=== PATIENT | female | born 1960 | race Caucasian/White ===

== ENCOUNTER 2025-07-29 07:27 | Day surgery (SDC) | payer MEDICARE, BC, SELFPAY ==
--- NOTE | 2025-07-23 13:14 | EXP.HP ---
History of Present Illness *History of present illness: Mrs. Roasdo is a 64-year-old female who is here for diagnostic EGD. The patient was having heartburn and pyrosis daily and had an EGD with me in March 2020. At that time she had nonerosive GERD with moderate esophageal dysmotility and 3 cm hiatal hernia. 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 I had recommended omeprazole daily. The patient also had a colonoscopy at that time that was entirely normal and I recommended 10-year surveillance interval. The patient was referred back for Mott's surveillance endoscopy. 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 She is on Cotellic and now 1 week on and 2 weeks off. She does state that when she is on Cotellic she develops diarrhea. When she comes off of this she gets constipated and has more heartburn and reflux. She does take MiraLAX when she becomes constipated. She does get hiccups with the constipation and heartburn. She also gets some bloating and belching. The examination is deemed medically necessary for diagnostic EGD. The patient has been seen, interviewed and examined prior to the procedure by both myself and the anesthesia provider. [facility] Disclaimer: The information contained in this section may have been updated after the patient was seen, as this information can be updated by other users. Medical History History of melanoma Hypothyroidism Hyperlipidemia History of head injury Diabetes insipidus GERD (gastroesophageal reflux disease) Erdheim-Luis disease Mott's esophagus Arthritis Surgical History History of melanoma excision History of thumb surgery H/O: hysterectomy H/O hemorrhoidectomy History of breast implant Family History Mother Lung cancer Father Prostate cancer Social History Smoking Status: Never smoker alcohol intake: former substance use type: denies use current occupational status: disabled Travel in the last 8 weeks?: None Have you lived/traveled outside [place] in past 30 days?: No Contact w/someone who lives/traveled outside US past 30 days?: No Exposure to someone with infectious disease in past 14 days?: No Do you have a fever (greater than 100.4 F or 38 C)?: No Have you tested positive for COVID-19?: No Exposed to someone with COVID-19 in past 14 days?: No Do you have a sore throat?: No Do you have a cough?: No Do you have any weakness?: No Do you have any diarrhea?: No Are you experiencing any unusual bleeding?: No Do you have any muscle aches/pain?: No Do you have any abdominal pain?: No Are you experiencing loss of taste or smell?: No Review of Systems Review of Systems Review of systems (narrative): Negative *Cardiovascular Comments: Negative *Gastrointestinal Comments: Negative *Genitourinary Comments: Negative *Musculoskeletal Comments: Negative *Neurologic Comments: Negative Meds Home Medications and Allergies Home Medications ?Medication ?Instructions ?Recorded ?Confirmed ?Type cobimetinib 20 mg tablet (Cotellic) 40 mg PO DAILY 05/18/25 07/27/25 History desmopressin 0.1 mg tablet (DDAVP) 0.1 mg PO ONCE 05/18/25 07/27/25 History levothyroxine 75 mcg tablet 75 mcg PO DAILY 05/18/25 07/27/25 History linaclotide 290 mcg capsule 290 mcg PO DAILY #30 caps 05/18/25 07/27/25 Rx (Linzess) polyethylene glycol 3350 17 17 g PO DAILY PRN bowel regimen 05/18/25 05/18/25 History gram/dose oral powder (Miralax) zolpidem 10 mg tablet 10 mg PO HS 05/18/25 07/27/25 History New Prescriptions to Start Prescriptions: Allergies Allergy/AdvReac Type Severity Reaction Status Date / Time Sulfa (Sulfonamide Allergy hands numb Verified 07/29/25 08:12 Antibiotics) Exam *Routine HEENT Exam Head: Present normocephalic Eye: Present EOMI and PERRL ENT: Present mucous membranes moist *Routine Neck Exam Neck: Present supple *Routine Respiratory Exam Respiratory: Present CTA bilaterally *Routine Cardiovascular Exam Cardiovascular: Present RRR *Routine Abdominal Exam Abdominal: Present soft and normoactive bowel sounds; Absent tenderness *Routine Rectal Exam Rectal:: deferred *Routine Genitalia Exam Genitalia:: deferred *Routine Extremities Exam Extremities: Absent cyanosis, clubbing or edema *Routine Skin Exam Skin: Present warm; Absent rash *Routine Neurological Exam Neurological: Present alert and oriented X3 Assessment and Plan *Assessment and plan (1) Mott's esophagus: Status: Acute Category: Medical Code(s): K22.70 - Mott's esophagus without dysplasia (2) Erdheim-Luis disease: Status: Acute Category: Medical Code(s): E88.89 - Other specified metabolic disorders (3) GERD (gastroesophageal reflux disease): Status: Acute Category: Medical Code(s): K21.9 - Gastro-esophageal reflux disease without esophagitis Plan A/P: 1. Chronic GERD with history of Mott's esophagus is the preprocedural diagnosis. The patient will be anesthetized/sedated using MAC sedation. The patient has been seen and examined. Cardiac and lung assessment prior to the examination is stable. Proceed with planned diagnostic and surveillance EGD.
[2025-07-27 14:02] VITALS: BMI 27.4
--- NOTE | 2025-07-29 06:55 | P.PCN_ITS ---
[facility] Procedure Note Date: 07/29/25 Procedure Note:: Upper Endoscopy Procedure Report: Esophagogastroduodenoscopy with cold biopsies and TTS balloon dilation Endoscopost: Trever Pabon II, MD Referring Physician: Emre Teixeira MD Date of Procedure: July 29, 2025 Equipment: Olympus GIF-1100 standard upper endoscope Sedation: MAC sedation Indications: Mrs. Rosado is a 64-year-old female who is here for diagnostic EGD. The patient was having heartburn and pyrosis daily and had an EGD with me in March 2020. At that time she had nonerosive GERD with moderate esophageal dysmotility and 3 cm hiatal hernia. 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 I had recommended omeprazole daily. The patient did better and came off of the omeprazole. The patient also had a colonoscopy at that time that was entirely normal and I recommended 10-year surveillance interval. The patient was referred back for Mott's surveillance endoscopy. The patient does have a history of Erdheim-Luis disease (histiocytic blood neoplasm) and I believe that she did not have the BRAF genetic mutation. She is on Cotellic and now 1 week on and 2 weeks off. She does state that when she is on Cotellic she develops diarrhea. When she comes off of this she gets constipated and has more heartburn and reflux. She does take MiraLAX when she becomes constipated. She does get hiccups with the constipation and heartburn. She also gets some bloating and very little belching. She does state that her heartburn and reflux are worsened at nighttime. The examination is deemed medically necessary for diagnostic EGD. Procedure: Prior to the procedure, a history and physical exam was performed, and patient's medications and allergies were reviewed. The risks, benefits and alternatives of the sedation and procedure were discussed with the patient. All questions were answered and informed consent was obtained. The patient was brought to the procedure room. Patient identification and proposed procedure were verified by the physician and the nurse. The patient was placed in a left lateral decubitus position and the scope was passed under direct vision. Throughout the procedure, the patient's blood pressure, pulse, and oxygen saturations were monitored continuously. The upper GI endoscopy was accomplished without difficulty. The patient tolerated the procedure well. Findings: The scope was passed directly into the upper esophagus and advanced to the third portion of the duodenum. The post bulbar duodenum and duodenal bulb were normal with normal mucosa and conniventes. 2 cold biopsies were taken from the second portion of the duodenum for the disaccharidase assay. The scope was withdrawn through a normal duodenal bulb and pylorus into the stomach. There was very mild prepyloric linear antral gastropathy. The body and fundus of the stomach were normal. Upon retroflexion there was a medium sized 4 cm hiatal hernia (not paraesophageal). Cold biopsies were taken from the antrum. The scope was then withdrawn into the esophagus. There was no evidence of any reflux esophagitis or Mott's esophagus and thus no biopsies were obtained from the esophagus. There were tertiary contractions and evidence of mild esophageal dysmotility and the entire esophagus was dilated to 60 [place]/20 mm with a TTS hydrostatic balloon. There was minimal resistance. The remainder of the esophageal mucosa was normal. Impression: 1. Nonerosive GERD with medium sized (4 cm) hiatal hernia and mild esophageal dysmotility 2. Minimal linear prepyloric antral gastropathy Plan: I will follow-up the biopsies and disaccharidase assay. I do feel that she has more functional GERD/gas driven bile reflux. We will discuss treatment options today.
[2025-07-29 08:15] VITALS: BP 129/70; PULSE 72; RESP 18; TEMP 36.4; O2SAT 99
[2025-07-29 08:25] LABS: POC Glucose,Bedside 89 gm/dL (70-110)
[2025-07-29] MEDS: LACTATED RINGERS 1000ML 1,000 ML 50 ML IV (08:58)
--- NOTE | 2025-07-29 08:59 | P.PNANES_ITS ---
[facility] Disclaimer: The information contained in this section may have been updated after the patient was seen, as this information can be updated by other users. Medical History History of melanoma Hypothyroidism Hyperlipidemia History of head injury Diabetes insipidus GERD (gastroesophageal reflux disease) Erdheim-Nash disease Mott's esophagus Arthritis Surgical History History of melanoma excision History of thumb surgery H/O: hysterectomy H/O hemorrhoidectomy History of breast implant Family History Mother Lung cancer Father Prostate cancer Social History Smoking Status: Never smoker alcohol intake: former substance use type: denies use current occupational status: disabled Travel in the last 8 weeks?: None Have you lived/traveled outside [place] in past 30 days?: No Contact w/someone who lives/traveled outside US past 30 days?: No Exposure to someone with infectious disease in past 14 days?: No Do you have a fever (greater than 100.4 F or 38 C)?: No Have you tested positive for COVID-19?: No Exposed to someone with COVID-19 in past 14 days?: No Do you have a sore throat?: No Do you have a cough?: No Do you have any weakness?: No Do you have any diarrhea?: No Are you experiencing any unusual bleeding?: No Do you have any muscle aches/pain?: No Do you have any abdominal pain?: No Are you experiencing loss of taste or smell?: No [facility] Anesthesia Checklist Patient Identification Patient Identification: Arm Band Structural Data Admitted From: Home Planned Operative Procedure/s: EGD Consent for Planned Operative Procedure(s) Verified: Yes Verified Documents: Surgical Consent and History and Physical NPO Status Verified Time NPO: 00:00 Additional verifications Anesthesia Reactions: No Airway Assessment Mallampati Score:: Class II C-Spine Mobility Assessed: Yes TMJ Mobility Assessed: Yes Dentition: Good Dentition Neurological Assessment Level of Consciousness: Awake, Alert and Appropriate Anesthesia Plan Anesthesia Risk discussed: Yes Anesthesia Plan: Verified ASA Class: II Anesthesia Type: MAC
[2025-07-29 09:27] VITALS: BP 152/92; PULSE 112; RESP 16; TEMP 36.4; O2SAT 93
[2025-07-29 09:42] VITALS: BP 122/72; PULSE 64; RESP 16; TEMP 36.4; O2SAT 99
[2025-07-29 09:57] VITALS: BP 116/75; PULSE 59; RESP 16; TEMP 36.4; O2SAT 97
[2025-08-03 15:18] LABS: Interpretation Notes (.); Lactase 8.14 (>/= 14.0); Maltase 111.19 (>/= 110.0); Palatinase 7.68 (>/= 8.5); Reference Notes (.); Sucrase 25.31 (>/= 25.0)
== END 2025-07-29 10:26 | disposition home or self-care (01) ==
PROVIDERS: PCP Internal Medicine; Visit Provider Internal Medicine Gastroenterology
PROC: 0DJ08ZZ Inspection of Upper Intestinal Tract, Via Natural or Artificial Opening Endoscopic (ICD-10-PCS; CPT 43239; principal; 2025-07-29 09:00)
DX: K44.9 Diaphragmatic hernia without obstruction or gangrene (principal); K31.89 Other diseases of stomach and duodenum; K22.4 Dyskinesia of esophagus; K21.9 Gastro-esophageal reflux disease without esophagitis; K22.70 Barrett's esophagus without dysplasia; E88.89 Other specified metabolic disorders; E03.9 Hypothyroidism, unspecified; Z88.2 Allergy status to sulfonamides
CPT/HCPCS: 43239; 43249; 82657; 82962; 88305; C1726; J2003; J2704; J7120